=== PATIENT | female | born 1945 | race African-American/Black ===

== ENCOUNTER 2022-12-21 15:09 | Outpatient (AMB) | payer MEDICARE, MEDICAID, SELFPAY ==
--- NOTE | 2022-12-21 15:13 | MHC.OFFVIS ---
Intake Vital Signs 12/21/22 15:14 Height 5 ft 7 in Weight 169 lb BMI 26.5 BP 152/74 H Blood Pressure Location Lt brachial Position Sitting Pulse 100 Pulse Source Pulse Oximeter Pulse Oximetry (%) 99 Oxygen Delivery Method Room Air Intake Visit Reasons: ENP-Memory Loss-Confirmed Intake Note: Patient presents for memory loss. Patient states having memory problems she left the house and couldn't get back, did not know where she was (Niece) Allergies No Known Allergies Allergy (Verified 12/21/22 15:18) HPI HPI Comments History of Present Illness Details 77 y/o female patient with HTN and T2 DM presents with her niece for new in-person visit for cognive impairment. Pt's niece reports that patient is very forgetful and being confused time and place. She moved from [place] many years ago, but patient still thinks that she is in [place]. She can't remember things, misplace the items, and has some hallucinations. She sees people climbing to trees. Pt lives with her niece, and her niece takes care of her. Pt does not cook or drive. She can take care of her self with ADLs. She got lost couple of weeks ago, she went out and could not come back her house, and police brought her to hospital. Pt's niece denies patient snores or witnessed apnea spells. Pt is not physically active, mostly staying home, and watching TV all day. Pt's appetite is ok, and her mood is stable. No sundowning or behavior issue. Pt had brain MRI and CT of neck done, but was told that it was unremarkable. The result is not available at this time. PFSH Family History (Updated 12/21/22 @ 15:19 by ARIANA Mcneal) Mother HTN (hypertension) Social History (Updated 12/21/22 @ 15:19 by ARIANA Mcneal) Alcohol intake: current Patient Tobacco Use Status: Never used Tobacco Review of Systems Const All systems reviewed & are unremarkable except as noted in HPI and below Physical Exam Vital Signs: Last Vital Signs Pulse 100 12/21/22 15:14 BP 152/74 H 12/21/22 15:14 Pulse Ox 99 12/21/22 15:14 Oxygen Delivery Method Room Air 12/21/22 15:14 BMI result Body Mass Index 26.5 Const General: cooperative and comfortable Nutritional Appearance: overweight Orientation/consciousness: oriented to person and oriented to place Neck Neck: Yes full ROM and Yes supple Resp Effort & Inspection: normal respiratory effort and able to speak in complete sentences Neuro Other: Hearing decreased. General: oriented to person and oriented to place Cranial nerves: Yes Bilaterally intact EOM present, Yes Normal facial strength present, Yes Symmetric palate elevation present, Yes Ability to bilaterally rotate head present and Yes Ability to bilaterally elevate shoulders present Motor exam (neuro): 5/5 motor strength present throughout, Pronator motor function not present and no tremor noted Coordination: cfxovl-tj-nyxi test normal Psych Appearance: grossly normal Mental Status: mental status grossly normal Speech and movement: Normal speech and movement present Affect: normal affect Attitude: cooperative Orientation What is the (year) (season) (date) (day) (month)?: month Where are we (state) (county) (town or city) (hospital) (floor)?: state and hospital/clinic Registration Name of 3 unrelated objects clearly and slowly, then ask patient to repeat all 3 of them. (1st repeat determines score. Make sure they can repeat all three): object 1, object 2 and object 3 Attention & Calculation (CHOOSE ONE) Spell WORLD backwards (DLROW): 5 letters Language Show patient a wristwatch & ask what it is. Repeat for pencil.: watch and pencil Ask the patient to repeat the phrase 'No ifs, ands, or buts' after you.: correct Ask the patient to 'take a piece of paper with their right hand' 'fold paper in half' 'place paper on floor': take paper in right hand, fold paper in half and place paper on floor Print the sentence 'CLOSE YOUR EYES' on a piece. If patient actually closes eyes then score.: followed written direction Give patient a blank piece of paper & ask to write a sentence. Score if it contains a noun & verb.: sentence contains subject and verb Ask patient to copy figure of intersecting pentagons exactly. Score if all 10 angles & 2 intersects are included.: all 10 angles present & 2 are intersected Score Score: 20 Assessment & Plan Assessment & Plan (1) Dementia: Code(s): F03.90 - Unspecified dementia, unspecified severity, without behavioral disturbance, psychotic disturbance, mood disturbance, and anxiety Plan Advised patient to start donepezil 5 mg qHS. Advised patient to do more physical and cognitive activities. Encouraged daily 30 min walking. Manage BS and BP well. Medications: New donepezil 5 mg PO BEDTIME 30 tabs 1RF 30 days Coding Level of Care Code New Pt Level 3 (28260) Diagnoses Dementia F03.90
[2022-12-21 15:14] VITALS: BP 152/74; PULSE 100; O2SAT 99; BMI 26.5
== END 2022-12-21 15:50 | disposition home or self-care (01) ==
PROVIDERS: PCP Physician Assistant; Visit Provider Nurse Practitioner Family
DX: F03.90 Unspecified dementia, unspecified severity, without behavioral disturbance, psychotic disturbance, mood disturbance, and anxiety (principal)
CPT/HCPCS: 99203

== ENCOUNTER → 2022-12-21 15:09 | Outpatient (BNVA) | payer MEDICARE, MEDICAID, SELFPAY | PROVIDERS: PCP Physician Assistant; Visit Provider Nurse Practitioner Family | DX: F03.90 Unspecified dementia, unspecified severity, without behavioral disturbance, psychotic disturbance, mood disturbance, and anxiety (principal) | CPT/HCPCS: 99202 ==

== ENCOUNTER 2023-03-01 14:12 | Outpatient (AMB) | payer MEDICARE, MEDICAID, SELFPAY ==
--- NOTE | 2023-03-01 14:34 | MHC.OFFVIS ---
Intake Vital Signs 03/01/23 14:37 Height 5 ft 7 in Weight 165 lb 4 oz BMI 25.9 BP 140/72 H Blood Pressure Location Lt brachial Position Sitting Pulse 69 Pulse Source Pulse Oximeter Pulse Oximetry (%) 93 Oxygen Delivery Method Room Air Intake Visit Reasons: 2 mo f/u - Memory Loss-Unable to confirmed No ans Intake Note: Patient presents two months F/U for memory loss sleeping a lot during the day Allergies No Known Allergies Allergy (Verified 03/01/23 14:36) HPI HPI Comments History of Present Illness Details 77 y/o female patient with HTN and T2 DM presents with her niece for follow up visit for dementia. Pt's niece reports that patient is very forgetful and being confused time and place. She can't remember things, misplace the items. She denies hallucination anymore. Pt lives with her niece, and her niece takes care of her. Pt does not cook or drive, walking She can take care of her self and independent for ADLs. Pt's niece denies patient snores or witnessed apnea spells. Pt is not physically active, mostly staying home, and watching TV all day. Pt's appetite is ok, and her mood is stable. No sundowning or behavior issue. Pt started donepezil 5 mg qHS, denies side effects. Pt had brain MRI and CT of neck done, but was told that it was unremarkable. The brain MRI, CT and lab result requested but is not available at this time. PFSH Family History Mother HTN (hypertension) Social History Alcohol intake: current Patient Tobacco Use Status: Never used Tobacco Review of Systems Const All systems reviewed & are unremarkable except as noted in HPI and below Physical Exam Vital Signs: Last Vital Signs Pulse 69 03/01/23 14:37 BP 140/72 H 03/01/23 14:37 Pulse Ox 93 03/01/23 14:37 Oxygen Delivery Method Room Air 03/01/23 14:37 BMI result Body Mass Index 25.9 Const General: cooperative and comfortable Nutritional Appearance: overweight Orientation/consciousness: oriented to person and oriented to place Neck Neck: Yes full ROM and Yes supple Resp Effort & Inspection: normal respiratory effort and able to speak in complete sentences Neuro Other: Hearing decreased. General: oriented to person and oriented to place Cranial nerves: Yes Bilaterally intact EOM present, Yes Normal facial strength present, Yes Symmetric palate elevation present, Yes Ability to bilaterally rotate head present and Yes Ability to bilaterally elevate shoulders present Motor exam (neuro): 5/5 motor strength present throughout, Pronator motor function not present and no tremor noted Coordination: hnyoia-rg-bdsd test normal Psych Appearance: grossly normal Mental Status: mental status grossly normal Speech and movement: Normal speech and movement present Affect: normal affect Attitude: cooperative Assessment & Plan Assessment & Plan (1) Dementia: Code(s): F03.90 - Unspecified dementia, unspecified severity, without behavioral disturbance, psychotic disturbance, mood disturbance, and anxiety Plan Advised patient to increase donepezil to 10 mg qHS. Advised patient to do more physical and cognitive activities. Encouraged daily 30 min walking. Manage BS and BP well. Medications: New donepezil 10 mg PO BEDTIME 90 tabs 3RF 90 days Coding Level of Care Code Est Pt Level 3 (48372) Diagnoses Dementia F03.90
[2023-03-01 14:37] VITALS: BP 140/72; PULSE 69; O2SAT 93; BMI 25.9
== END 2023-03-01 14:55 | disposition home or self-care (01) ==
PROVIDERS: PCP Physician Assistant; Visit Provider Nurse Practitioner Family
DX: F03.90 Unspecified dementia, unspecified severity, without behavioral disturbance, psychotic disturbance, mood disturbance, and anxiety (principal)
CPT/HCPCS: 99213

== ENCOUNTER → 2023-03-01 14:12 | Outpatient (BNVA) | payer MEDICARE, MEDICAID, SELFPAY | PROVIDERS: PCP Physician Assistant; Visit Provider Nurse Practitioner Family | DX: F03.90 Unspecified dementia, unspecified severity, without behavioral disturbance, psychotic disturbance, mood disturbance, and anxiety (principal) | CPT/HCPCS: 99212 ==

== ENCOUNTER 2023-11-15 14:06 | Outpatient (AMB) | payer MEDICARE, MEDICAID, SELFPAY ==
[2023-11-15 14:08] VITALS: BMI 25.8
--- NOTE | 2023-11-15 14:08 | A.OFFVIS_ITS ---
Vital Signs 11/15/23 14:08 Height 5 ft 7 in Weight 165 lb BMI 25.8 Intake Visit Reasons: 6 mo f/u Intake Note: Patient presents for 6 month follow up. patient still having a lot of forgetfulness, fatigue,some agitation,hallucinating pacing a lot at night. Allergies No Known Allergies Allergy (Verified 11/15/23 14:11) HPI Comments Details: 77 y/o female patient with HTN and T2 DM presents with her nieces for follow up visit for dementia. According to her niece who she lives with she refuses to take medications. Her cognition is worse. she needs help with medications she is independent in most ADLs she is worse at night, has frequent arousals , paces , agitated, more confused, thinks she is in [place].Patient disagrees about frequent arousals Patient is very agitated when counseled on taking medications. she has day night reversal - sleeps all day and wakes up often at night. Pt lives with her niece, and her niece takes care of her. Pt does not cook or drive, walking She can take care of her self and independent for ADLs. Pt had brain MRI and CT of neck done, but was told that it was unremarkable. The brain MRI, CT and lab result requested but is not available at this time. she is very noncompliant with medications. she is not seeing her PCP. [facility] Medical History Diabetes HTN (hypertension) Family History Mother HTN (hypertension) Social History Alcohol intake: current Patient Tobacco Use Status: Never used Tobacco Physical Exam Vital Signs: BMI result Body Mass Index 25.8 Const General: cooperative and comfortable Nutritional Appearance: overweight Orientation/consciousness: oriented to person and oriented to place Neck Neck: Yes full ROM and Yes supple Resp Effort & Inspection: normal respiratory effort and able to speak in complete sentences Neuro Other: Hearing decreased. General: oriented to person and oriented to place Cranial nerves: Yes Bilaterally intact EOM present, Yes Normal facial strength present, Yes Symmetric palate elevation present, Yes Ability to bilaterally rotate head present and Yes Ability to bilaterally elevate shoulders present Motor exam (neuro): 5/5 motor strength present throughout, Pronator motor function not present and no tremor noted Coordination: [id number]-gi-tfpt test normal Assessment & Plan Assessment & Plan (1) Dementia: Code(s): F03.90 - Unspecified dementia, unspecified severity, without behavioral disturbance, psychotic disturbance, mood disturbance, and anxiety Category: Medical Qualifiers: Dementia type: unspecified type Dementia severity: moderate Dementia behavioral or psychological symptom: with other behavioral disturbance Qualified Code(s): F03.B18 - Unspecified dementia, moderate, with other behavioral disturbance Plan Counseled patient on taking medications . Asked family to call [facility] for help at home. Advised patient to do more physical and cognitive activities. Encouraged daily 30 min walking. Coding Level of Care Code Est Pt Level 4 (43894) Complex EM visit Add On G2211 Diagnoses Moderate dementia with other behavioral disturbance, unspecified dementia type F03.B18 Dementia type: unspecified type Dementia severity: moderate Dementia behavioral or psychological symptom: with other behavioral disturbance
== END 2023-11-15 14:40 | disposition home or self-care (01) ==
PROVIDERS: PCP Physician Assistant; Visit Provider Psychiatry & Neurology Neurology
DX: F03.B18 Unspecified dementia, moderate, with other behavioral disturbance (principal)
CPT/HCPCS: 99214; G2211

== ENCOUNTER → 2023-11-15 14:06 | Outpatient (BNVA) | payer MEDICARE, MEDICAID, SELFPAY | PROVIDERS: PCP Physician Assistant; Visit Provider Psychiatry & Neurology Neurology | DX: F03.B18 Unspecified dementia, moderate, with other behavioral disturbance (principal); R53.83 Other fatigue | CPT/HCPCS: 99212 ==

== ENCOUNTER 2024-06-13 15:31 | Outpatient (AMB) | payer MEDICARE, MEDICAID, SELFPAY ==
[2024-06-13 15:41] VITALS: BP 122/72; BMI 26.2
--- NOTE | 2024-06-13 15:41 | MHC.OFFVIS ---
Vital Signs 06/13/24 15:41 Height 5 ft 7 in Weight 167 lb BMI 26.2 BP 122/72 Blood Pressure Location Rt brachial Position Sitting Intake Visit Reasons: 6 mo f/u-Conf Intake Note: Patient presents for follow up dementia Allergies No Known Allergies Allergy (Verified 06/13/24 15:42) Medication List - Last Reconciled 06/13/24 by Judy Yin MD acetaminophen 500 mg PO Q6H PRN blood sugar diagnostic (FreeStyle Lite Strips) As directed donepezil 10 mg PO BEDTIME 90 days empagliflozin (Jardiance) 10 mg PO DAILY lisinopril 20 mg PO DAILY metformin 580 mg PO BID HPI Comments Details: 77 y/o female patient with HTN and T2 DM presents with her nieces for follow up visit for dementia. According to her niece who she lives. Her cognition is worse.she needs help with laundry , cooking etc she is independent in most ADLs she is worse at night, has frequent arousals , paces , agitated, more confused, thinks she is in [place].Patient disagrees about frequent arousals Patient is very agitated when counseled on taking medications. she has day night reversal - sleeps all day and wakes up often at night. Pt lives with her niece, and her niece takes care of her. Pt does not cook or drive, walking She can take care of her self and independent for ADLs. Pt had brain MRI and CT of neck done, but was told that it was unremarkable. The brain MRI, CT and lab result requested but is not available at this time. she is very noncompliant with medications. she is not seeing her PCP. [facility] Medical History Diabetes HTN (hypertension) Family History Mother HTN (hypertension) Social History Alcohol intake: current Patient Tobacco Use Status: Never used Tobacco Physical Exam Vital Signs: BMI result Body Mass Index 26.2 Const General: cooperative and comfortable Nutritional Appearance: overweight Orientation/consciousness: oriented to person and oriented to place Neck Neck: Yes full ROM and Yes supple Resp Effort & Inspection: normal respiratory effort and able to speak in complete sentences Neuro Other: Hearing decreased. General: oriented to person and oriented to place Cranial nerves: Yes Bilaterally intact EOM present, Yes Normal facial strength present, Yes Symmetric palate elevation present, Yes Ability to bilaterally rotate head present and Yes Ability to bilaterally elevate shoulders present Motor exam (neuro): 5/5 motor strength present throughout, Pronator motor function not present and no tremor noted Coordination: rzghky-ax-itjv test normal Assessment & Plan Assessment & Plan (1) Dementia: Code(s): F03.90 - Unspecified dementia, unspecified severity, without behavioral disturbance, psychotic disturbance, mood disturbance, and anxiety Category: Medical Qualifiers: Dementia behavioral or psychological symptom: with other behavioral disturbance Dementia severity: moderate Dementia type: unspecified type Qualified Code(s): F03.B18 - Unspecified dementia, moderate, with other behavioral disturbance Plan Counseled patient on taking medications . Asked family to call [facility] for help at home. Advised patient to do more physical and cognitive activities. Encouraged daily 30 min walking. continue donepezil 10mg qd will start her on memantine XR 7mg qd and titrate upto 28 mg qd Medications: New memantine 7 mg PO DAILY 14 ea 0RF memantine after 2 weeks of 7 mg 14 mg PO DAILY 14 ea 0RF memantine after 2 weeks of 14 mg 21 mg PO DAILY 14 ea 0RF memantine after 2 weeks of 28 mg 28 mg PO DAILY 30 ea 6RF Coding Level of Care Code Est Pt Level 4 (91317) Diagnoses Moderate dementia with other behavioral disturbance, unspecified dementia type F03.B18 Dementia behavioral or psychological symptom: with other behavioral disturbance Dementia severity: moderate Dementia type: unspecified type
--- OUTSIDE RECORDS SUMMARY | 2024-06-13 16:03 | XMS_ITS | Continuity of Care Document ---
Author Organization [facility] [employer] Address [address] [place] [address]- Care Team Providers Care Hub Bander Name Role Phone Dustin Loja NP Primary Care Physician [id number] Date[facility]s): [facility]13[facility] - 06/12/24 [facility] [employer] [address] [place] [address]- Attending Physician: Not on Staff, Attending MD Referring Physician: Dustin Loja NP Encounter Type: Pre-OutPatient One Time Allergies, Adverse Reactions, Alerts No Known Allergies Immunizations Given and Recorded Vaccine Date Status Refusal Reason pneumococcal 20-valent conjugate vaccine 06/10/24 Given SARS-CoV-2 (COVID-19) mRNA BNT-162b2 vac 06/16/20 Recorded SARS-CoV-2 (COVID-19) mRNA BNT-162b2 vac 05/26/20 Recorded Medications atorvastatin 80 mg oral tablet 1 tablet = 80 mg, By Mouth, Daily, # 90 tablet, 3 Refills, Maintenance, 01/29/24 1:32:00 PM EST, Tablet, [id number], Partial fill upon patient request if the prescription is for a schedule II opioid drug., 170, cm, 01/08/24 8:32:00 EST, Height, 75.9, kg, 01/08/24 8:32:00 EST, Dry Weight Start Date: 01/29/24 Status: Ordered Quantity: 90.0 Unit: tablet Repeat number: 4 donepezil 10 mg oral tablet TAKE 1 TABLET BY MOUTH AT BEDTIME Start Date: 12/26/23 Status: Ordered Repeat number: 1 Freestyle Lite Lancets See Instructions, # 90 each, Refills 2, Tot. Refills 2, Maintenance, use daily to check blood glcuose as directed for Type 2 Diabetes Mellitus, 06/10/24 1:45:00 PM EDT, Supply, 170, cm, 06/10/24 13:12:00 EDT, Height, 75.5, kg, 02/29/24 14:25:00 EST, Dry Weight Start Date: 06/10/24 Stop Date: 03/07/25 Status: Ordered Quantity: 90.0 Unit: each Repeat number: 3 Freestyle Lite Monitor See Instructions, # 1 each, Refills 0, Tot. Refills 0, Maintenance, use daily to check blood glcuose as directed for Type 2 Diabetes Mellitus, 10/31/22 11:30:00 AM EDT, Supply, 165.5, cm, 10/17/22 13:17:00 EDT, Height Start Date: 10/31/22 Stop Date: 11/30/22 Status: Ordered Quantity: 1.0 Unit: each Repeat number: 1 gabapentin 100 mg oral capsule 200 mg, 2, capsule, By Mouth, Daily at bedtime, # 60 capsule, Refills 0, Tot. Refills 0, Maintenance, 06/10/24 2:40:00 PM EDT, Route to Pharmacy Electronically, [facility] #[id number], Partial fill upon patient request if the prescription is for a schedule II opioid drug., 170, cm, 06/10/24 14:31:00 EDT, Height, 75.5, kg, 02/29/24 14:25:00 EST, Dry Weight Start Date: 06/10/24 Status: Ordered Quantity: 60.0 Unit: capsule Repeat number: 1 Indication: Type 2 diabetes mellitus with diabetic neuropathy, unspecified Jardiance 10 mg oral tablet 1 tablet = 10 mg, By Mouth, Daily in AM, # 30 tablet, 1 Refills, Maintenance, 06/10/24 2:41:00 PM EDT, Tablet, [facility] #[id number], Partial fill upon patient request if the prescription is for a schedule II opioid drug., 170, cm, 06/10/24 14:31:00 EDT, Height, 75.5, kg, 02/29/24 14:25:00 EST,Dry Weight Start Date: 06/10/24 Status: Ordered Quantity: 30.0 Unit: tablet Repeat number: 2 lisinopril 20 mg oral tablet 20 mg, 1, tablet, By Mouth, Daily, # 90 tablet, Refills 0, Tot. Refills 0, Maintenance, 06/10/24 2:34:00 PM EDT, Route to Pharmacy Electronically, [facility] #[id number], Partial fill upon patientrequest if the prescription is for a schedule II opioid drug., 170, cm, 06/10/24 14:31:00 EDT, Height, 75.5, kg, 02/29/24 14:25:00 EST, Dry Weight Start Date: 06/10/24 Status: Ordered Quantity: 90.0 Unit: tablet Repeat number: 1 metFORMIN 850 mg oral tablet 1 tablet = 850 mg, By Mouth, 2 times a day, # 60 tablet, 2 Refills, Maintenance, 06/10/24 2:42:00 PM EDT, Tablet, [facility] #[id number], Partial fill upon patient request if the prescription is for a schedule II opioid drug., 170, cm, 06/10/24 14:31:00 EDT, Height, 75.5, kg, 02/29/24 14:25:00 EST, Dry Weight Start Date: 06/10/24 Status: Ordered Quantity: 60.0 Unit: tablet Repeat number: 3 Test Strips See Instructions, # 50 each, Refills 11, Tot. Refills 11, Maintenance, use daily for blood sugar testing once a day Dx DM type 2 E11.9 Free Style Lite Covering for PCP, Diabetes mellitus type 2, 06/10/24 4:02:00 PM EDT, Compound, 170, cm, 06/10/24 14:31:00 EDT, Height, 75.5, kg, 02/29/24 14:25:00 EST, Dry Weight Start Date: 06/10/24 Status: Ordered Quantity: 50.0 Unit: each Repeat number: 12 toilet seat riser toilet seat riser, See Instructions, # 1 each, Refills 0, Tot. Refills 0, Maintenance, sig: place over toilet and use as needed. dx: reduced mobility Z74.0. NICMO: 99, 01/10/24 1:19:00 PM EST, Supply Start Date: 01/10/24 Status: Ordered Quantity: 1.0 Unit: each Repeat number: 1 Indication: Dorsalgia, unspecified Problem List Condition Confirmation Course Effective Dates Status Health St atus Informant Alzheimer's disease Confirmed Active Diabetes mellitus with neuropathy Confirmed Active Dyslipidemia Confirmed Active HTN (hypertension) Confirmed Active Social History Social History Type Response Tobacco Use: 4 or less cigar ettes(less than 1/4 pack)/day in last 30 days. Other: total of 20 years smoking. Stopped at age: 18 Years. Sex Female Sex Representation Female (finding) Patient Care team information Care Team Personnel Name: Dustin Loja NP Position: [facility] Associate Professional Member Role: PCP Address: [address] [place] [address] Telecom: Care Team Related Persons Name: SHILOH HOLT Insurance Providers Guarantor name: JOHN AVILA Health Plan Information #: 2 Payer: [facility] Member Number: [id number] Policy Number: NA Group Number: NA Health Plan Information #: 1 Payer: MEDICARE PART B OUTPT Member Number: [id number] Policy Number: NA Group Number: NA
--- OUTSIDE RECORDS SUMMARY | 2024-06-13 16:03 | XMS_ITS | Patient Health Record ---
Author Organization [facility] Veronique arceo [place] Address [address] [place] [address] Care Team Providers Care Disability Manager Name Role Phone Sean Chowdary Unavailable [phone] Allergies No Known Allergies Reason For Referral No Information Medications Medication SIG (Take, Route, Frequency, Duration) Notes Start Date End Date Status Donepezil HCl 10 MG As Directed Orally O nce a day Active Atorvastatin Calcium 80 MG 1 tablet Oral ly Once a day Active Naproxen Active Social History Tobacco Use: Social History Observation Description Date Details (start date - stop date) Former Smoker NA - NA Tobacco Use/Smoking Question Answer Notes Are you a: former smoker Additional Findings: Tobacco Non-User Current no n-smoker Alcohol Screen Question Answer Notes Did you have a drink containing alcohol in the p ast year? No Points 0 Interpretation Negative Tobacco use other than smoking: Question Answer Notes Are you an other tobacco user? No Encounters Encounter Location Date Provider Diagnosis [facility] [address] [place] [address] 12/13/2023 Sean Chowdary Plan Of Treatment No Information Insurance Providers Payer Name Payer Address Payer Phone Subscriber Number Group Number Insured Name Patient Relationship to Insured Coverage Start Date Coverage End Date [employer] [address] [place] [address] [id number] Jamila Diaz Self - patient is the insured Medical (General) History Medical History History ICD Code Dementia Diabetic Chicken pox
--- OUTSIDE RECORDS SUMMARY | 2024-06-13 16:03 | XMS_ITS ---
Author Organization [facility] adis [place] Address [address] [place] [id number] Care Team Providers Care Branch Manager Name Role Phone Sean Chowdary Unavailable [phone] Allergies No Known Allergies Medications Medication SIG (Take, Route, Frequency, Duration) [...] Are you an other tobacco user? No Vital Signs Height 5ft 7 in in 12/13/2023 Weight 165 lbs 12/13/2023 BMI 25.84 kg/m2 12/13/2023 Encounters Encounter Location Date Provider [facility] [address] [address] 12/13/2023 Sean Chowdary Plan Of Treatment No Information Progress Notes * Ryanne AVILAhDOB:1945 (78 yo F)Acc No.[id number]:12/13/2023 Progress Notes Patient:?aJmila AVILA Provider:?Sean Chowdary DPM :1945???Age:78 Y???Sex:Female D ate:12/13/2023 Address: [facility] [facility] [place], [id number] Subjective: * Chief Complaints: * ??? * ROS:?General/Constitutional:?Nausea?denies.?Vomiting?denies.?Hunger Thirst?denies.?Loss appetite?denies.?Chills?denies.?Fatigue?denies.?Fever?denies.?Night Sweats?denies.?Unexplained weight loss?denies.?Unexplained weight gain?denies.?HEENTM:?Dentures?denies.?Dizziness?denies.?Glasses/contacts?denies.?Retinopathy?de nies.?Blurred/double vision?denies.?TMJ?denies.?Discharge/drainage?denies.?Implants?denies.?Sore throat?denies.?Dental implants?denies.?Hard of hearing ?denies.?Difficulty chewing/swallowing/speaking?denies.?Nose bleeds?denies.?Sore mouth?denies.?Respiratory:?On Oxygen?denies.?Pneumonia/pleurisy?denies.?Bronchitis?denies.?Emphysema?denies.?C oughing?denies.?Cough blood?denies.?Shortness of breath?denies.?Wheezing?denies.?Cardiovascular:?Pacemaker?denies.?MVP?denies.?WPW?denies.?CHF?denies.?Heart attack?denies.?Septal defect?denies.?Rapid beat?denies.?Chest pain ?denies.?Atrial Fib.?denies.?Murmur/Palpitations?denies.?Gastrointestinal:?Hemorrhoids?denies.?Stomach/Abdominal pain?denies.?Dark blood stool?denies.?Irritable bowel ?denies.?Constipation?denies.?Diarrhea?denies.?Hematology:?Swelling?denies.?Clots?denies.?Varicose Veins?denies.?Bruising?denies.?Bleeding problem?denies.?Genitourinary:?Blood urine?denies.?Frequent/Painfu/urination/bladder control?admits.?Kidney stones?denies.?Infection (UTI)?denies.?Nephropathy?denies.?sex trans dis (STD)?denies.?Prostate?denies.?Musculoskeletal:?Hammertoes?denies.?Bunions?denies.?Back Pain?denies.?Muscle Cramps/ Resting?denies.?Muscle cramps / walking?admits.?Generalized aches and pains?denies.?Weakness?denies.?Integ.:?Herman?denies.?Scars?denies.?Corns/calluses?denies.?Ingrown nails?denies.?Painful nails?denies.?Open Sores?denies.?Rashes?denies.?Neurologic:?Difficulty sleeping?denies.?Brain disorder?denies.?Numbness?denies.?Balance trouble?denies.?Confusion?denies.?Fainting/blackouts?denies.?Tingling?denies.?Tr emors?denies.? * Medical History:?Dementia, D iabetic, Chicken pox. * Family History:?Mother: dece ased, diagnosed with Diabetic - NIDDM, Unspecified essential hypertension.?Father: .? * Social History:?Tobacco Use:?Tobacco Use/Smoking?Are you a:?former smoker ?Additional Findings: Tobacco Non-User?Current non-smoker ?Tobacco use other than smoking?Are you an other tobacco user??No ???Drugs/Alcohol:?Drugs?Have you used drugs other than those for medical reasons in the past 12 months??No ?Alcohol Screen?Did you have a drink containing alcohol in the past year??No ?Points?0 ?Interpretation?Negative ???Miscellaneous:?Caffeine: yes, frequency:1 Cup. * Medications:?Taking Atorvast atin Calcium 80 MG Tablet 1 tablet Orally Once a day , Taking Donepezil HCl 10 MG Tablet As Directed Orally Once a day , Taking Naproxen * Allergies:?N.K.D.A. Objective: * Vitals:?Ht:5ft 7 in, Wt:165, BMI: 25.84, Shoe size:11, Ht-cm: 170.18 cm, Wt-k.84 kg. Assessment: Plan: * Treatment: * Images: * The named appointment provid er may or may not be the originator of this progress note, and it is not deemed complete until electronically signed by the appointment provider. Sign off status: Pending * Provider:?Sean Chowdary DPM Date:?2023 Generated for Wood webster/Alber/Aj on:?06/13/2024 04:03 PM EDT
--- OUTSIDE RECORDS SUMMARY | 2024-06-13 16:03 | XMS_ITS ---
Author Organization [facility] Address [address] [place] [address] Care Team Providers Care Apartment Maintenance Manager Name Role Phone Sean Chowdary Unavailable [phone] REASON FOR VISIT cancel Encounters Encounter Location Date Provider Diagnosis [facility] [address] [place] [address] 12/13/2023 Sean Chowdary Plan Of Treatment No Information Progress Notes * Paige DIAZOB:1945 (78 yo F)Acc No.[id number]:12/13/2023 Patient:?JoeJamila :1945???Age:78 Y???Sex:Female Address:[address] [place] [id number] * true * Date:? Generated for Wongi darin/Alber/eTransmitting on:?06/13/2024 04:03 PM EDT
--- OUTSIDE RECORDS SUMMARY | 2024-06-13 16:03 | XMS_ITS | Clinical Summary ---
Author Organization [facility] Address [address] [place] [address] Care Team Providers Care Oil Separator Name Role Phone Unavailable Primary Care Provider Unavailabl e Social History Tobacco Use Types Packs/Day Years Used Date Smoking Tobacco: Never Assessed Comments Unknown Sex and Gender Information Value Date Recorded Sex Assigned at Not on file Legal Sex Female 8:26 PM EST Gender Identity Not on file Sexual Orientation Not on file Plan of Treatment Health Maintenance Due Date Last Done Comments DTaP,Tdap,and Td Vaccines (1 - Tdap) 1965 Pneumococcal Vaccine: 50+ Ye ars (1 of 1 - PCV) 1996 Zoster Vaccines (1 of 2) 1996 RSV Immunization Adult Patie nts (1 - 1-dose 75+ series) 2021 Depression Screening 03/03/2023 Falls Risk Assessment 03/03/2023 Hepatitis C Screening 03/03/2023 Osteoporosis Screening (Bone Density Screening) 03/03/2023 Social Influencers of Health Screening 03/03/2023 COVID-19 Vaccine ( - 2023-2 5 season) 2023 Influenza Vaccine (Season Ended) 2024 HIB Vaccines Aged Out No longer eligi ble based on patient's age to complete this topic HPV Vaccines Aged Out No longer eligi ble based on patient's age to complete this topic Hepatitis A Vaccines Aged Out No long er eligible based on patient's age to complete this topic Hepatitis B Vaccines Aged Out No long er eligible based on patient's age to complete this topic IPV Vaccines Aged Out No longer eligi ble based on patient's age to complete this topic MMR Vaccines Aged Out No longer eligi ble based on patient's age to complete this topic Meningococcal ACWY Vaccine Aged Out N o longer eligible based on patient's age to complete this topic Meningococcal B Vaccine Aged Out No l onger eligible based on patient's age to complete this topic RSV Immunization Patients Un viktor 20 months Aged Out No longer eligible b ased on patient's age to complete this topic Varicella Vaccines Aged Out No longer eligible based on patient's age to complete this topic
== END 2024-06-13 15:55 | disposition home or self-care (01) ==
LOC: HO.HSMS 15:32
PROVIDERS: PCP Physician Assistant; Visit Provider Psychiatry & Neurology Neurology
DX: F03.B18 Unspecified dementia, moderate, with other behavioral disturbance (principal)
CPT/HCPCS: 99214

== ENCOUNTER → 2024-06-13 15:31 | Outpatient (BNVA) | payer MEDICARE, MEDICAID, SELFPAY | PROVIDERS: PCP Physician Assistant; Visit Provider Psychiatry & Neurology Neurology | DX: F03.B18 Unspecified dementia, moderate, with other behavioral disturbance (principal) | CPT/HCPCS: 99212 ==